=== PATIENT | female | born 1950 | race Caucasian/White ===

== ENCOUNTER 2016-12-08 14:07 | Inpatient (IN) | payer OTHER, MEDICAID ==
[2016-12-08] VITALS (8 sets, daily range): BP systolic 101–149; BP diastolic 43–72
[~2016-12-08] VITALS: Ht 157.5 cm; Wt 67.1 kg
[~2016-12-08 14:07] MED LIST: ECOTRIN81 MG PO; GABAPENTIN300 M1 PO; GLUCOPHAGE1000 MG PO; HUMALOG100 UNITS/ SUBQ; IMDUR30 MG PO; LANTUS100 U/ML SUBQ; LEVEMIR100 U/ML SUBQ; LIPITOR40 MG PO; NEURONTIN400 MG PO; ORETIC25 MG PO; PLAVIX75 MG PO; REMERON15 MG PO; VITAMIN D32000 I1 PO; ZANTAC150 MG PO
--- NOTE | 2016-12-08 15:38 | NUR ---
Patient ambulated to bed 5. RN evaluating patient at bedside.
--- NOTE | 2016-12-08 15:40 | NUR ---
PATIENT PRESENTS TO ED WITH C/O PT PRESENTS TO ER W/C/O ABDOMINAL PAIN SINCE LAST NOC. HX DM, HTN, HYPERLIPIDEMIA. DENIES N/V/D; SKIN IS PINK/WARM/DRY; AAOX4 WITH EVEN AND STEADY GAIT; LUNGS CLEAR BL; HR EVEN AND REGULAR; PT DENIES ANY FEVER, CP, SOB, OR COUGH AT THIS TIME; PATIENT STATES PAIN OF 8/10 AT THIS TIME; VSS; PATIENT POSITIONED FOR COMFORT; HOB ELEVATED; BEDRAILS UP X2; BED DOWN. ER MD MADE AWARE OF PT STATUS.
[2016-12-08] MEDS ORDERED: PIPERACILLIN/TAZOBACTAM 3.375 GM in DEXTROSE 5% 50 ML IV ONE (16:20)
[2016-12-08] MEDS ORDERED: PIPERACILLIN/TAZOBACTAM 3.375 GM VIAL IV ONE (16:32)
[2016-12-08] MEDS ORDERED: NACL 0.9% 1,000 ML IV SCH (16:33)
[2016-12-08] MEDS ORDERED: ACETAMINOPHEN 325 MG TAB PO PRN (16:35)
[2016-12-08] MEDS ORDERED: ONDANSETRON 4 MG/2 ML VIAL IVP PRN ×3 (16:35→21:30)
--- NOTE | 2016-12-08 17:05 | NUR ---
RN NOT AVAILABLE AT THIS TIME FOR REPORT, WITH ANOTHER PT WILL CALL BACK IN 15 MINUTES
--- NOTE | 2016-12-08 18:00 | NUR ---
PATIENT ADMITTED TO THE UNIT FROM ER. PATIENT AWAKE, ALERT ORIENTED AND AMBULATORY. NO S/S OF DISTRESS NOTED. PATIENT ON ROOM AIR. PATIENT DENIES PAIN AT THIS TIME. SKIN IS INTACT. IV LINE NOTED TO THE RIGHT AC, INTACT AND ASYMPTOMATIC. PATIENT PUT ON TELE MONITORING. BED LOWERED WITH CALL LIGHT WITHIN REACH. WILL CONTINUE TO MONITOR
[2016-12-08] MEDS ORDERED: DESFLURANE 240 ML BTL INH ONE (18:27)
[2016-12-08] MEDS ORDERED: SUCCINYLCHOLINE CHLORIDE 200 MG/10 ML VIAL IVP ONE (18:27)
[2016-12-08] MEDS ORDERED: LIDOCAINE 2% 100 MG/5 ML SYR IVP ONE (18:27)
[2016-12-08] MEDS ORDERED: PHENYLEPHRINE 10 MG/ML VIAL ONE (18:27)
[2016-12-08] MEDS ORDERED: ONDANSETRON 4 MG/2 ML VIAL ONE (18:27)
[2016-12-08] MEDS ORDERED: ROCURONIUM 50 MG/5 ML VIAL IV ONE (18:27)
[2016-12-08] MEDS ORDERED: ETOMIDATE 20 MG/10 ML VIAL IVP ONE (18:27)
[2016-12-08] MEDS ORDERED: DEXAMETHASONE 4 MG/ML VIAL ONE (18:27)
--- NOTE | 2016-12-08 18:30 | NUR ---
PATIENT LEFT THE UNIT FOR LAPAROSCOPIC APPENDECTOMY
[2016-12-08] MEDS ORDERED: BUPIVACAINE-MPF 0.25% 30 ML VIAL INJ ONE (18:35)
[2016-12-08] MEDS ORDERED: MIDAZOLAM 2 MG/2 ML VIAL ONE (18:45)
[2016-12-08] MEDS ORDERED: fentaNYL 0.05 MG/ML VIAL ONE (18:45)
[2016-12-08] MEDS ORDERED: BLOOD GLUCOSE MONITORING 1 DEV DEV FS ONE (19:30)
[2016-12-08] MEDS ORDERED: HYDROmorphone 1 MG/ML AMP IVP PRN ×2 (19:30→21:30)
[2016-12-08] MEDS ORDERED: DEXT 5% / NACL 0.45% 1,000 ML IV SCH (20:10)
--- NOTE | 2016-12-08 21:00 | NUR ---
RECEIVED PT FROM SURGERY. BEDSIDE REPORT RECEIVED FROM ASHLEY JANG. PT AWAKE, ALERT AND ORIENTED, SPEAKS MALT[place] MOSTLY. FAMILY MEMBERS AT BEDSIDE. INITIAL ASSESSMENT DONE. PT HAS 3 LAP INCISION ON ABDOMEN W/ OCTASEAL. VITAL SIGNS WNL. PLAN OF CARE DISSCUSSED SCD TURNED ON. PT COMPLAINING OF ABDOMINAL PAIN/BURNING. WILL CHECK FOR PAIN MEDICATION ORDER. FAMILY ASKED WHEN CAN THE PT EAT. INFORMED THEM THAT PT IS NPO FOR NOW AND WILL ADVANCE TO CLEAR LIQUID IN AM. FAMILY VERBALIZED UNDERSTANDING AND TRANSLATED TO PT. SAFETY REINFORCED. CALL LIGHT W/IN REACH.
--- NOTE | 2016-12-08 21:25 | NUR ---
CALLED AND SPOKE TO DR RANKIN REGARDING PT COMPLAINING OF ABDOMINAL PAIN. HE SAID THERE'S HYDROMORPHONE ORDER BUT TOLD HIM IT WAS A PACU ORDER. NEW ORDERS RECEIVED AND CARRIED OUT.
--- NOTE | 2016-12-08 22:30 | NUR ---
SEEN PT AWAKE WATCHING TV. PT DENIES ANY PAIN OR DISCOMFORT RIGHT NOW. VS CHECKED PER POST OP PROTOCOL. CALL LIGHT W/IN REACH.
[2016-12-09] VITALS: BP 128/55
--- NOTE | 2016-12-09 00:10 | NUR ---
PT CALLED AND SEEN SAYING SOMETHING. ASKED ASHLEY TOLLIVER TO TRANSLATE. PT STATES SHE WANTS TO GO URINATE. OFFERED BEDPAN. BEDPAN IN PLACED BUT PT UNABLE TO GO. PT STATES SHE HAS PAIN BUT WANTS TO GET UP TO THE BATHROOM. INSTRUCTED TO USE INCENTIVE SPIROMETER 10X IN AN HOUR WHILE AWAKE. PT ABLE TO DO IT. AFTER WHICH, PT ASSISTED TO THE BATHROOM AND WAS ABLE TO URINATE. PT TOLERATED WALKING W/ STANDBY ASSIST. PT MEDICATED W/ NORCO FOR PAIN W/ TEACHINGS. PT KEPT COMFORTABLE IN BED. IVF RESUMED. CALL LIGHT W/IN REACH. WILL CLOSELY MONITOR.
[2016-12-09] MEDS ORDERED: INSULIN LISPRO SLIDING SCALE 100 UNITS/ML VIAL SUBQ PRN (00:25)
[2016-12-09] MEDS: HYDROcodone/APAP 5/325 MG 1 TAB TAB PO PRN ×3 (00:39→21:07)
--- NOTE | 2016-12-09 03:00 | NUR ---
SEEN PT AWAKE. PT SAID 'NO DORMIR". INFORMED PT SHE SHOULD HAVE ASKED EARLIER BECAUSE RIGHT NOW WE CAN'T GIVE ANY SLEEPING PILL. PT APPEARS TO UNDERSTAND. ASKED PT IF SHE HAS PAIN. PT SAID "NO". LIGHTS TURNED OFF AND CURTAIN CLOSED SENIOR CARE TO ASSIST W/ SLEEP. WILL CONTINUE TO MONITOR.
[2016-12-09 04:00] VITALS: BP 110/63
--- NOTE | 2016-12-09 04:50 | NUR ---
SEEN PT AWAKE. VITAL SIGNS CHECKED. PT DENIES ANY PAIN OR DISCOMFORT. PT ASKED IF SHE WAS ABLE TO SLEEP FOR A LITTLE BIT. PT SAID "SI". CALL LIGHT W/IN REACH.
--- NOTE | 2016-12-09 05:40 | NUR ---
PT GOT UP TO THE BATHROOM W/ ASSIST AND BACK TO BED. PT COMPLAINING OF ABDOMINAL PAIN AND WANTS SOMETHING FOR PAIN. WILL MEDICATE ORDERED.
--- NOTE | 2016-12-09 06:35 | NUR ---
BLOOD SUGAR CHECKED:264 WILL COVER W/ INSULIN PER COVERAGE. PT DENIES ANY PAIN.
--- NOTE | 2016-12-09 07:10 | NUR ---
RECEIVED PATIENT REPORT. PATIENT AWAKE, ALERT AND ORIENTED. NO S/S OF DISTRESS NOTED. NO C/O OF PAIN AT THIS TIME. 3 LAPARASCOPIC INCISIONS NOTED TO THE ABD. INCISIONS CLEAN AND INTACT. BED LOWERED WITH CALL LIGHT WITHIN REACH. WILL CONTINUE TO MONITOR
[2016-12-09 07:52] VITALS: BP 151/72
[2016-12-09] MEDS: ECOTRIN 81 MG TABEC PO SCH (08:16)
[2016-12-09] MEDS: ATORVASTATIN 20 MG TAB PO SCH (08:16)
[2016-12-09] MEDS: GABAPENTIN 100 MG CAP PO SCH ×3 (08:16→17:30)
[2016-12-09] MEDS: metFORMIN 500 MG TAB PO SCH ×2 (08:16→20:57)
[2016-12-09] MEDS: HYDROCHLOROTHIAZIDE 25 MG TAB PO SCH (08:17)
[2016-12-09] MEDS: ISOSORBIDE MONONITRATE 30 MG TABER PO SCH (08:18)
--- NOTE | 2016-12-09 08:45 | NUR ---
AWAKE AND ALERT [place] SPEAKING FIDE/DAUGHTER AT BEDSIDE WELL LOGGING CAPTAIN TOLERATED INCENTIVE SPIROMETRY (IS) PROCEDURE WELL WITHOUT INCIDENT ENCOURAGED PATIENT TO USE IS EVERY 2 HOURS WHILE AWAKE RELAYED TO DAUGHTER WITH ACKNOWLEDGEMENT TO TAKE INCENTIVE SPIROMETRY HOME FOR FURTHER THERAPY FOR MOTHER
[2016-12-09] MEDS ORDERED: PIPER/TAZO 3.375GM/D5W PREMIX 50 ML IV SCH (09:00)
[2016-12-09] MEDS: DOCUSATE SODIUM 100 MG GELCAP PO SCH ×2 (09:00→20:56)
[2016-12-09] MEDS ORDERED: DOCUSATE SODIUM 100 MG GELCAP PO SCH (09:00)
[2016-12-09] MEDS ORDERED: MAGNESIUM OXIDE 400 MG TAB PO SCH (09:00)
[2016-12-09] MEDS ORDERED: CLOPIDOGREL 75 MG TAB PO SCH (09:00)
--- NOTE | 2016-12-09 09:30 | NUR ---
PATIENT AMBULATED TO THE BATHROOM TO VOID
--- NOTE | 2016-12-09 10:02 | NUR ---
PATIENT HAS BEEN SCREENED AND CATEGORIZED MODERATE NUTRITION RISK. PATIENT WILL BE SEEN WITHIN 3-5 DAYS OF ADMISSION. 12/11/16-12/13/[address]
[2016-12-09] MEDS: NACL 0.9% 1,000 ML IV SCH (10:10)
--- NOTE | 2016-12-09 12:00 | NUR ---
PATIENT TOLERATED REGULAR DIET WELL
[2016-12-09] MEDS: SIMETHICONE 80 MG TAB.CHEW PO SCH ×2 (12:13→20:56)
--- NOTE | 2016-12-09 14:00 | NUR ---
PATIENT SEEN BY DR RANKIN. PER DR RANKIN PATIENT CAN BE DISCHARGED TO HOME TOMORROW AND FOLLOW UP AT HIS OFFICE IN 2 WEEKS
--- NOTE | 2016-12-09 15:14 | NUR ---
Clinical review faxed at [phone] to [facility].
[2016-12-09 16:00] VITALS: BP 112/60
[2016-12-09] MEDS: PIPER/TAZO 3.375GM/D5W PREMIX 50 ML IV SCH (17:30)
--- NOTE | 2016-12-09 19:10 | NUR ---
ENDORSED CONTINUITY OF CARE TO THE NIGHT NURSE. PATIENT IN STABLE CONDITION
--- NOTE | 2016-12-09 19:11 | NUR ---
PATIENT IS CURRENTLY RESTING IN BED SPEAKS [place],HAS ABD INCISIONS X3 WITH CLEAR GLUE LIKE TRANSPARENT DRESSING CURRENTLY ALLEN.PATIENT IS WEARING AN ABDOMINAL BINDER.IVF INFUSING WELL IV SITE PATENT.PATIENT DENIES PAIN AT THIS TIME.ENCOURAGED TO AMBULATE.PATIENT VERBALIZES UNDERSTANDING.FAMILY AT BEDSIDE AT THIS TIME WILL CONTINUE TO MONITOR.CALL LIGHT WITHIN REACH.
[2016-12-09 20:00] VITALS: BP 112/57
--- NOTE | 2016-12-09 20:56 | NUR ---
EDUCATION GIVEN ON ROUTINE MEDICATION TAKEN KARAN PATIENT VERBALIZES UNDERSTANDING AND TOOK HER MEDS.PATIENT STATES,"I TAKE METFORMIN PILLS TO CONTROL MY BLOOD SUGAR." THEN PATIENT STATES," I USUALLY CHECK MY BLOOD SUGAR AT HOME." I ASKED THE PATIENT IF HER BLOOD SUGAR HAS BEEN CHECKED TODAY PATIENT STATES,"NO."I WILL CALL MD AND WILL INFORM.I CHECKED HER BLOOD SUGAR CURRENTLY 239 SO I GO AHEAD AND I WILL GIVE HER. METFORMIN ORDERED KARAN.CALL LIGHT WITHIN REACH WILL CONTINUE TO MONITOR.
[2016-12-09] MEDS ORDERED: MIRTAZAPINE 15 MG TAB PO SCH (21:00)
--- NOTE | 2016-12-09 22:05 | NUR ---
I SPOKE TO MD GUTIERREZ SINCE HE WAS ANSWERING TO ANOTHER CALL AND I INFORMED HIM ABOUT PATIENT BEING DIABETIC AND THAT PATIENT HAS NO ORDER FOR ACCUCHECK AND HAS MEDICATION FOR DIABETES ON FILE.PATIENT IS ON [facility] DIET.BUT, PATIENT STATES,"I CHECK MY BLOOD SUGAR AT HOME." PATIENT STATES,"MY BLOOD SUGAR HASN'T BEEN CHECKED."MD GUTIERREZ INFORMED.MD GUTIERREZ SAID HE WILL PUT ORDERS.
--- NOTE | 2016-12-10 00:27 | NUR ---
PATIENT IS CURRENTLY RESTING IN BED CALL LIGHT WITHIN REACH.WILL CONTINUE TO MONITOR.
[2016-12-10] MEDS: PIPER/TAZO 3.375GM/D5W PREMIX 50 ML IV SCH ×3 (00:40→12:55)
--- NOTE | 2016-12-10 01:51 | NUR ---
PATIENT IV LINE IS OUT OF PLACE LEAKING.NEW IV LINE RESTARTED TO RT HAND G#22 AT FIRST ATTEMPT WITH GOOD BLOOD RETURN.PATIENT TOLERATED PROCEDURE WELL.WILL CONTINUE TO MONITOR.
--- NOTE | 2016-12-10 02:39 | NUR ---
PATIENT IS CURRENTLY SLEEPING IN BED,IVF INFUSING WELL IV SITE PATENT WILL CONTINUE TO MONITOR.CALL LIGHT WITHIN REACH.
[2016-12-10] MEDS: NACL 0.9% 1,000 ML IV SCH ×2 (02:50→05:21)
--- NOTE | 2016-12-10 04:35 | NUR ---
PATIENT IS CURRENTLY RESTING IN BED IVF INFUSING WELL IV SITE PATENT.NEEDS MET.CALL LIGHT WITHIN REACH.
[2016-12-10] MEDS: SIMETHICONE 80 MG TAB.CHEW PO SCH ×2 (05:21→05:22)
[2016-12-10] MEDS ORDERED: HYDROcodone/APAP 5/325 MG 1 TAB TAB ONE (05:25)
[2016-12-10] MEDS: HYDROcodone/APAP 5/325 MG 1 TAB TAB PO PRN ×2 (05:28→11:53)
[2016-12-10 05:53] VITALS: BP 139/68
--- NOTE | 2016-12-10 06:30 | NUR ---
PATIENT STABLE RESTING IN BED ACCUCHECK DONE BLOOD SUGAR 193.
--- NOTE | 2016-12-10 07:36 | NUR ---
PATIENT STABLE REPORT ENDORSED AT BEDSIDE TO RN BALBIRN.
[2016-12-10 08:00] VITALS: BP 148/78
[2016-12-10] MEDS ORDERED: MULTIVITAMIN/MINERALS 1 TAB PO SCH (09:00)
[2016-12-10] MEDS: ATORVASTATIN 20 MG TAB PO SCH (09:00)
[2016-12-10] MEDS: GABAPENTIN 100 MG CAP PO SCH ×2 (09:31→12:57)
[2016-12-10] MEDS: HYDROCHLOROTHIAZIDE 25 MG TAB PO SCH (09:32)
[2016-12-10] MEDS: ECOTRIN 81 MG TABEC PO SCH (09:33)
[2016-12-10] MEDS: ISOSORBIDE MONONITRATE 30 MG TABER PO SCH (09:33)
[2016-12-10] MEDS: metFORMIN 500 MG TAB PO SCH (09:33)
[2016-12-10] MEDS: DOCUSATE SODIUM 100 MG GELCAP PO SCH (09:34)
[2016-12-10] MEDS ORDERED: LEVAQUIN500 M1 PO (12:52)
[2016-12-10] MEDS ORDERED: FLAGYL250 MG PO (12:54)
--- NOTE | 2016-12-10 15:30 | NUR ---
PATIENT DISCHARGED HOME WITH THE FAMILY IN A STABLE CONDITION.
[2016-12-12] MEDS ORDERED: NORCO 325 MG-51 TAB PO (07:37)
== END 2016-12-10 15:30 | disposition home or self-care (01) | DRG 853 ==
LOC: MED 14:07 → MTU 16:40
PROVIDERS: ADMIT Family Medicine; ATTEND Family Medicine
PROC: 0W9G4ZZ Drainage of Peritoneal Cavity, Percutaneous Endoscopic Approach (ICD-10-PCS; 2016-12-08)
PROC: 0DTJ4ZZ Resection of Appendix, Percutaneous Endoscopic Approach (ICD-10-PCS; principal; 2016-12-08 18:30)
DX: A41.9 Sepsis, unspecified organism (principal); K35.2 Acute appendicitis with generalized peritonitis; K68.19 Other retroperitoneal abscess; N17.0 Acute kidney failure with tubular necrosis; N39.0 Urinary tract infection, site not specified; E44.0 Moderate protein-calorie malnutrition; E87.1 Hypo-osmolality and hyponatremia; D68.69 Other thrombophilia; E83.42 Hypomagnesemia; E11.65 Type 2 diabetes mellitus with hyperglycemia; I10 Essential (primary) hypertension; J45.909 Unspecified asthma, uncomplicated; E11.51 Type 2 diabetes mellitus with diabetic peripheral angiopathy without gangrene; I25.10 Atherosclerotic heart disease of native coronary artery without angina pectoris; Z98.61 Coronary angioplasty status; I25.2 Old myocardial infarction; Z90.49 Acquired absence of other specified parts of digestive tract; Z79.4 Long term (current) use of insulin; Z79.82 Long term (current) use of aspirin; Z79.899 Other long term (current) drug therapy; Z79.02 Long term (current) use of antithrombotics/antiplatelets; Z79.84 Long term (current) use of oral hypoglycemic drugs; Z68.27 Body mass index [BMI] 27.0-27.9, adult